=== PATIENT | female | born 1940 | race Caucasian/White ===

== ENCOUNTER 2017-11-06 12:35 | Emergency (ER) | payer OTHER ==
[~2017-11-06] VITALS: Ht 142.2 cm; Wt 99.8 kg
[~2017-11-06 12:35] MED LIST: ADULT LOW DOSE81 MG PO; ALTACE10 MG PO; ALTACE5 M1 PO; AMBIEN 5 MG TABL5 M1 PO; APAP650 PO; ASPIRIN81 M2 PO; BENTYL 20 MG TA20 M1 PO; CAPOTEN 50MG TA50 MG PO; COLACE 100 MG100 MG PO; CRANBERRY 12,61 EACH PO; DICYCLOMINE PO; DIPHENOXYLATE/A1 TA1 PO; FENOFIBRATE160 MG PO; FLONASE 0.05%50 MCG NASAL; GLUCOSAMINE &1 EAC1 PO; GLUCOSAMINE-CH1 EA37 PO; HYDROCODON-ACE1 EACH PO; IRON325 PO; LASIX 40 MG TAB40 M1 PO; LOPRESSOR100 MG PO; NEXIUM40 MG PO; PLAVIX 75 MG TA75 M1 PO; POTASSIUM CHLO20 ME1 PO; POTASSIUM GLUC500 MG PO; PROAIR HFA8.5 GM INH; PROTONIX40 M2 PO; TOPROL XL100 MG PO; TRAMADOL 50 MG50 MG PO; VITAMIN D-32000 UNIT PO; VYTORIN 10-201 EACH PO; ZETIA10 MG PO; ZOCOR40 MG PO
[2017-11-06] MEDS ORDERED: CALCIUM500 MG PO (12:54)
[2017-11-06] MEDS ORDERED: [UNRECOGNIZED DRUG - OTHER] PO (12:55)
[2017-11-06] MEDS ORDERED: IRON325 PO (12:59)
[2017-11-06] MEDS ORDERED: COLACE100 MG PO (13:00)
[2017-11-06 13:40] LABS: HEMATOCRIT 34.5 % (37.0-47.0); HEMOGLOBIN 10.7 gm/dL (12.0-15.0); MCH 22.9 pg (26.0-34.0); MCHC 30.9 g/dL (28.0-37.0); PLATELET COUNT 337 thou/uL (150-400); RBC 4.67 mil/uL (4.20-5.00); RDW 26.8 % (10.5-14.5); WBC 8.6 thou/uL (4.0-11.0)
[2017-11-06 13:42] LABS: MANUAL DIFF YES
[2017-11-06 13:43] LABS: CALCIUM 9.1 mg/dL (8.5-10.1); POTASSIUM 4.4 mmol/L (3.5-5.1)
[2017-11-06 13:55] LABS: ALBUMIN 3.6 g/dL (3.4-5.0); DIRECT BILIRUBIN 0.1 mg/dL (<0.1-0.3); TOTAL BILIRUBIN 0.3 mg/dL (<0.1-1.0); TOTAL PROTEIN 7.1 g/dL (6.4-8.2)
[2017-11-06 14:31] LABS: ABSOLUTE NEUTROPHILS 6.7 thou/uL (1.4-8.2); MICROCYTES 2+; PLATELET ESTIMATE NORMAL; TOTAL CELL COUNT 100
[2017-11-06 14:32] LABS: ANISOCYTOSIS 1+
== END 2017-11-06 15:30 | disposition home or self-care (01) ==
LOC: ER 12:35
PROVIDERS: Emergency Medicine
DX: K92.2 Gastrointestinal hemorrhage, unspecified (principal); Z88.2 Allergy status to sulfonamides; I25.10 Atherosclerotic heart disease of native coronary artery without angina pectoris; R60.9 Edema, unspecified; I10 Essential (primary) hypertension; E78.00 Pure hypercholesterolemia, unspecified

== ENCOUNTER → 2018-02-25 | Outpatient (CLI) | payer OTHER ==
[~2018-02-25] VITALS: Ht 142.2 cm; Wt 97.5 kg
[~2018-02-25] MED LIST changes: +CALCIUM500 MG PO; +COLACE100 MG PO; +VENTOLIN HFA 1818 GM INH; +[UNRECOGNIZED DRUG - OTHER] PO
--- NOTE | ~2018-02-25 | P ---
[facility] [place] [address] PROCEDURE REPORT Name: SAMANTHA MCKNIGHT Room #: REG [facility] Klever#: [id number] Admission: 02/25/18 Attend Phys: Omar Evangelista Discharge: Date of : 42 Report #: [id number] THIS REPORT FOR: //name// CC: YOLIE Mancia DATE OF SERVICE: 02/25/2018 PROCEDURE PERFORMED: Upper endoscopy with polypectomy and biopsies. HISTORY OF PRESENT ILLNESS: The patient is a 77-year-old female who was recently seen in the office with intermittent bright red blood per rectum. She has a previous history of colon AVMs which were cauterized by my partner several years ago. She also has a history of gastroesophageal reflux disease, takes Nexium on a daily basis. She denies any dysphagia or odynophagia. Plan is for EGD and colonoscopy. DESCRIPTION OF PROCEDURE: The risks and benefits of the procedure were explained to the patient, those risks including but not limited to bleeding, perforation, the risk of sedation. She understood these risks and gave informed consent. Sedation was given using propofol per anesthesia. Next, using a standard Odojoinon upper endoscope, the scope was placed in the patient's mouth and advanced under direct vision through the esophagus, stomach and into the second portion of the duodenum. The larynx was normal in appearance. The esophagus was normal throughout. In the stomach, there was a mild gastritis. Biopsies were obtained. There was a polyp that was somewhat atypical in appearance. It was approximately 5-6 mm in size. Because of this, I removed it by snare cautery. No evidence of bleeding after polypectomy. The pylorus was normal and patent. The duodenal bulb, first and second portion were all normal. The scope was then withdrawn and the procedure terminated. The patient tolerated the procedure well. IMPRESSION: 1. Gastric polyp. 2. Mild gastritis. 3. No evidence of bleeding throughout the exam. 4. Otherwise, normal upper endoscopy. RECOMMENDATIONS: 1. Await biopsy results. 2. We will proceed with colonoscopy next today. [facility] [address] [place] [address] PROCEDURE REPORT Name: SAMANTHA MCKNIGHT Room #: REG JENNY Ernst#: [id number] Admission: 02/25/18 Attend Phys: Omar Evangelista Discharge: Date of : 42 Report #: [id number] Thank you for allowing me to participate in her care. <ELECTRONICALLY SIGNED> By: Omar Landaverde MD 02/26/18 0809 0859 1215 Omar Landaverde MD /nt
--- NOTE | ~2018-02-25 | S ---
[facility] [place] [address] SURGICAL PATH RPT PROCEDURE Name: MARGUERITE BILLINGS Room #: REG JENNY Lizzette.#: [id number] Admission: 02/25/18 Date of : 42 Discharge: Report #: [id number] Path Case #: [id number] PATHOLOGY REPORT COLLECTION DATE: 02/25/2018 RECEIVED DATE: 02/25/2018 SUBMITTING PHYS: Dr. Omar Landaverde OTHER PHYS: Dr. Taylor Mancia ADDENDUM REPORT (Order Date: 02/27/2018 10:48) ADDENDUM COMMENT: Acid fast bacillus and PAS-D fungal special stains performed on block A1 are negative for mycobacterial as well as fungal elements, respectively. The originally rendered diagnoses remain unchanged. Professional services performed by [facility] at [facility] [address] [place] [address] Technical services performed by [facility] at [address] [place] [address], [address] [place] [address]. ELECTRONICALLY SIGNED BY: Orin Rutledge M.D. DATE/TIME:02/27/2018 16:20 SPECIMEN(S) RECEIVED: A.Gastric polyp B.Bx gastric C.Polyp at transverse colon D.Polyp at sigmoid colon * * * * * * * * * * * * FINAL DIAGNOSIS: A. 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 - Negative for dysplasia or malignancy. B. Gastric mucosa, gastritis, endoscopic biopsy: - Mild reactive gastropathy. - Negative for intestinal metaplasia or atrophy. - Negative for Helicobacter pylori. C. Polyp, at transverse colon, endoscopic biopsy: - Tubular adenoma. - Negative for high-grade dysplasia. D. Polyp, at sigmoid colon, endoscopic biopsy: - Tubular adenoma. - Negative for high grade dysplasia. [facility] [address] [place] [address] SURGICAL PATH RPT PROCEDURE Name: MARGUERITE BILLINGS Room #: REG CLJud Ernst#: [id number] Admission: 02/25/18 Date of : 42 Discharge: Report #: [id number] Path Case #: [id number] COMMENT: Part A: AFB and PAS-D fungal special stains are ordered on block A1. The results of these will be reported in an addendum to follow. Well controlled Helicobacter pylori immunohistochemical stain performed on block B1-negative. (IUV:pit; 02/26/2018) PATHOLOGIST: Orin Rutledge M.D. REPORT ELECTRONICALLY SIGNED BY: Orin Rutledge M.D. DATE/TIME: 02/26/2018 15:44 * * * * * * * * * * * * GROSS PATHOLOGY: A. The specimen is received in formalin, labeled "Marguerite Billings and gastric polyp", are two garland soft tissues 0.2 cm and is 0.4 x 0.3 cm, entirely submitted in A1. B. The specimen is received in formalin, labeled "Marguerite Billings and biopsy gastritis", are several garland soft tissues the aggregate measure 0.6 x 0.4 x 0.1 cm, entirely submitted in B1. C. The specimen is received in formalin, labeled " Marguerite Billings and polyp at transverse colon", is a garland soft tissue measuring 0.2 cm in greatest dimension, entirely submitted in C1. D. The specimen is received in formalin, labeled " Billings, Marguerite and polyp at sigmoid colon", is a garland soft tissue measuring 0.3 cm in greatest dimension, entirely submitted in D1. (SWS; 02/25/2018) CLINICAL HISTORY: Anemia, gastric polyp, colon polyps, gastritis INITIAL CPT CODE(S): A; 69294, 94112, 62379 B; 92492, 56770 C; 39633 D; 09111 Professional services performed by [facility] at [address], [place] [address] Technical services performed by [facility] at [address] [place] [address], [place] [address]. [facility] [address] [address] SURGICAL PATH RPT PROCEDURE Name: MARGUERITE BILLINGS Room #: REG JENNY Ernst#: [id number] Admission: 02/25/18 Date of : 42 Discharge: Report #: [id number] Path Case #: [id number] [address] PHONE: [phone] DIRECTOR: Jarred W. April, M.D. * * * END OF REPORT * * *
--- NOTE | ~2018-02-25 | P ---
[facility] [place] [address] PROCEDURE REPORT Name: SAMANTHA MCKNIGHT Room #: REG JENNY Ernst#: [id number] Admission: 02/25/18 Attend Phys: Omar Evangelista Discharge: Date of : 42 Report #: [id number] THIS REPORT FOR: //name// CC: Omar Mancia MD DATE OF SERVICE: 02/25/2018 PROCEDURE PERFORMED: Colonoscopy with biopsies. HISTORY OF PRESENT ILLNESS: The patient is a 77-year-old female who was seen by myself in the office on 12/04/2017 with intermittent bright red blood per rectum and a history of anemia. She had a previous history of colonoscopy with nonbleeding AVMs that were cauterized at that time in 2013. Upper endoscopy was just performed, which was essentially negative. DESCRIPTION OF PROCEDURE: The risks and benefits of the procedure were explained to the patient, those risks including but not limited to bleeding, perforation and the risk of sedation. She understood these risks and gave informed consent. Sedation was given using propofol per anesthesia. Next, a digital rectal exam showed external hemorrhoids, nonbleeding, otherwise normal. Next, using a standard Fujinon colonoscope, the scope was placed in the patient's anus and advanced under direct vision to the cecum. The overall prep was excellent. Cecum and ileocecal valve were normal in appearance. The ascending colon was normal. In the transverse colon, a 3 mm sessile polyp was noted. This was removed by cold forceps, otherwise normal. Descending colon was normal. A few scattered diverticula were noted in the sigmoid colon. Also, noted was a 3 mm sessile polyp, removed by cold forceps. No evidence of bleeding throughout the exam today. The rectal mucosa was normal. On retroflexion, small nonbleeding internal hemorrhoids were noted. The scope was then withdrawn and the procedure terminated. The patient tolerated the procedure well. IMPRESSION: 1. Mild sigmoid diverticulosis. 2. Two small colon polyps. 3. Small internal hemorrhoids, medium size external hemorrhoids, likely source of recent bright red blood per rectum. No evidence of bleeding at this time. RECOMMENDATIONS: 1. Await biopsy results. 2. If polyps are adenomatous polyps, repeat colonoscopy in 5 years. 3. We would recommend high fiber diet and Analpram on a p.r.n. basis. [address] [address] PROCEDURE REPORT Name: SAMANTHA MCKNIGHT Room #: REG JENNY Ernst#: [id number] Admission: 02/25/18 Attend Phys: Omar Evangelista Discharge: Date of : 42 Report #: [id number] Thank you for allowing me to participate in her care. <ELECTRONICALLY SIGNED> By: Omar Landaverde MD 02/26/18 0809 0930 1211 mOar Landaverde MD /jordan
== END | disposition home or self-care (01) ==
LOC: GI 02-04 11:13
DX: D12.3 Benign neoplasm of transverse colon (principal); D12.5 Benign neoplasm of sigmoid colon; K29.60 Other gastritis without bleeding; K31.7 Polyp of stomach and duodenum; D64.9 Anemia, unspecified; K64.4 Residual hemorrhoidal skin tags; K57.30 Diverticulosis of large intestine without perforation or abscess without bleeding; K64.8 Other hemorrhoids; K21.9 Gastro-esophageal reflux disease without esophagitis; Z79.899 Other long term (current) drug therapy
CPT/HCPCS: 62110; 62900

== ENCOUNTER → 2019-05-20 | Outpatient (CLI) | payer OTHER ==
--- NOTE | 2019-05-21 20:06 | SLE ---
[facility] [place] [address] POLYSOMNOGRAPHY STUDY Name: SAMANTHA MCKNIGHT Room #: REG [facility]#: [id number] Admission: 05/20/19 ������������������ Attend Phys: Ivan Burrell MD Discharge: ������������������ Date of : 42 Report #: [id number] THIS REPORT FOR: //name// CC: Ivan Ambriz MD DATE OF SERVICE: 05/20/2019 ATTENDING PHYSICIAN: Keyon Ambriz MD. The patient is a 79-year-old who weighs 226 pounds with a BMI of 44.1. The patient's Linkwood score was 3. The patient underwent a diagnostic sleep study performed at [facility]. During the night study, the patient spent 482 minutes in bed and slept for 253 minutes with a low sleep efficiency of 52.5%. Sleep latency was prolonged at 195 minutes with an absent REM latency. Sleep architecture showed increased stage 1 and stage 2 sleep with absent N3 sleep and absent REM sleep. During the night study, the patient had 2 obstructive apneas, no mixed or central apneas. There were 30 hypopneas. The patient's apnea hypopnea index was 7.1 per hour. REM sleep was not seen. The patient's supine index was 17 per hour. EKG monitoring revealed an average heart rate of 86 beats per minute. Frequent PVCs were observed, but no sustained arrhythmias seen. Maximum heart rate was 96 beats per minute during sleep. PLMs were seen as an index of 223 per hour and 21 per hour caused EEG arousals. Nocturnal oximetry study revealed an average oxygen saturation of 93% with a lowest of 86%. 0.9 minutes were spent at an oxygen saturation of less than 89%. Due to low AHI, the patient did not meet the split night criteria for CPAP initiation. IMPRESSION: 1. Mild sleep apnea-hypopnea syndrome with moderate increase during supine sleep. Total apnea hypopnea index of 7.6 per hour with a supine apnea hypopnea index of 17 per hour. Absence of rapid eye movement sleep can underestimate the severity of sleep apnea. 2. Reduced sleep efficiency resulting from sleep onset insomnia. 3. Severe periodic limb movements resulting in significant EEG arousals. The patient's total periodic limb movement index was 223 per hour with an arousal [facility] [address] [place] [address] POLYSOMNOGRAPHY STUDY Name: SAMANTHA MCKNIGHT Room #: REG [facility].#: [id number] Admission: 05/20/19 ������������������ Attend Phys: Ivan Burrell MD Discharge: ������������������ Date of : 42 Report #: [id number] index of 21 per hour. 4. No clinically significant nocturnal hypoxia. RECOMMENDATIONS: 1. The patient has mild sleep apnea. If the patient is clinically symptomatic or has comorbid conditions, then it can be treated with either oral appliance or a trial of CPAP titration. 2. Weight loss is strongly advised. 3. Avoid supine sleep. 4. Cautioned regarding driving until symptoms of sleep apnea resolve with the above recommendation. 5. The patient was noted to have sleep onset insomnia. If this is a chronic condition, then it should be treated according to the etiology. 6. The patient has severe PLMs with significant EEG arousals. It be treated with dopaminergic agonist agents. The patient should also be further evaluated for symptoms of restless legs during the day. ��������������������������������������������� <ELECTRONICALLY SIGNED> ���������������������������������������� By: Ivan Burrell MD ��������������������������������������������� 05/21/192005 1645 1730 Ivan Burrell MD /nt
== END ==
LOC: SLEEPLAB 13:57
DX: G47.33 Obstructive sleep apnea (adult) (pediatric) (principal)

== ENCOUNTER 2019-06-16 16:44 | Emergency (ER) | payer OTHER ==
[~2019-06-16] VITALS: Ht 149.9 cm; Wt 102.1 kg
[2019-06-16 16:45] VITALS: BP 130/48
[2019-06-16 17:37] LABS: HEMATOCRIT 25.9 % (37.0-47.0); HEMOGLOBIN 7.4 gm/dL (12.0-15.0); MCH 17.4 pg (26.0-34.0); MCHC 28.6 g/dL (28.0-37.0); PLATELET COUNT 426 thou/uL (150-400); RBC 4.25 mil/uL (4.20-5.00); RDW 19.6 % (10.5-14.5)
[2019-06-16] MEDS ORDERED: TYLENOL ARTHRI650 MG PO (17:38)
[2019-06-16] MEDS ORDERED: TESSALON PERLE100 MG PO (17:38)
[2019-06-16] MEDS ORDERED: CYMBALTA30 MG PO (17:39)
[2019-06-16] MEDS ORDERED: CRANBERRY200 MG PO (17:39)
[2019-06-16] MEDS ORDERED: OXYBUTYNIN 5 MG5 M2 PO (17:40)
[2019-06-16] MEDS ORDERED: MAXZIDE-25 MG1 EACH PO (17:40)
[2019-06-16] MEDS ORDERED: XANAX 0.5 MG0.5 MG PO (17:41)
[2019-06-16 17:46] LABS: CALCIUM 9.4 mg/dL (8.5-10.1); CREATININE 1.2 mg/dL (0.6-1.0); POTASSIUM 4.8 mmol/L (3.5-5.1)
[2019-06-16 17:51] LABS: APTT 24.7 Seconds (24.5-32.8); PROTIME 9.9 Seconds (9.3-11.4)
[2019-06-16 17:52] LABS: ALBUMIN 3.5 g/dL (3.4-5.0); TOTAL BILIRUBIN 0.3 mg/dL (<0.1-1.0); TOTAL PROTEIN 7.3 g/dL (6.4-8.2)
[2019-06-16 18:04] LABS: ABSOLUTE NEUTROPHILS 6.9 thou/uL (1.4-8.2)
[2019-06-16 18:05] LABS: ANISOCYTOSIS 2+; HYPOCHROMASIA 3+; MICROCYTES 2+
--- NOTE | 2019-06-16 18:54 | NUR ---
TRANSFUSION CONSENT IN CHART
[2019-06-17 01:44] LABS: % SATURATION 3 % (20-39); IRON 16 ug/dL (50-170); TIBC 609 ug/dL (250-450)
[2019-06-17 01:48] LABS: ABSOLUTE RETIC COUNT 0.1025 10^6/uL; OBSERVED RETIC COUNT 2.42 % (0.6-2.6)
[2019-06-17 01:57] VITALS: BP 147/52; BP 149/71; BP 154/55; BP 158/63; BP 162/59
[2019-06-17 02:12] LABS: FOLIC ACID 17.1 ng/mL (8.6-58.9)
[2019-06-17 05:19] LABS: HEMATOCRIT 32.3 % (37.0-47.0); MCH 18.8 pg (26.0-34.0); MCHC 29.4 g/dL (28.0-37.0); RBC 5.04 mil/uL (4.20-5.00); RDW 23.1 % (10.5-14.5); WBC 11.8 thou/uL (4.0-11.0)
[2019-06-17 05:21] LABS: HEMOGLOBIN 9.5 gm/dL (12.0-15.0)
[2019-06-17 05:33] LABS: CALCIUM 9.3 mg/dL (8.5-10.1); POTASSIUM 4.4 mmol/L (3.5-5.1)
[2019-06-17 10:48] VITALS: BP 155/62
[2019-06-17 11:07] VITALS: BP 163/70
== END 2019-06-17 11:39 | disposition home or self-care (01) ==
LOC: ER 16:44 → EROBS 18:30 → ER 06-17 11:39
PROVIDERS: Nurse Practitioner Family; Physician Assistant
DX: D64.9 Anemia, unspecified (principal); R53.1 Weakness; I10 Essential (primary) hypertension; I25.2 Old myocardial infarction; I25.10 Atherosclerotic heart disease of native coronary artery without angina pectoris; E78.5 Hyperlipidemia, unspecified; K58.9 Irritable bowel syndrome, unspecified; J45.909 Unspecified asthma, uncomplicated; K21.9 Gastro-esophageal reflux disease without esophagitis; Z98.890 Other specified postprocedural states; Z95.2 Presence of prosthetic heart valve; Z98.41 Cataract extraction status, right eye; Z98.42 Cataract extraction status, left eye; Z90.89 Acquired absence of other organs; Z90.710 Acquired absence of both cervix and uterus; Z88.2 Allergy status to sulfonamides; Z88.3 Allergy status to other anti-infective agents; Z91.048 Other nonmedicinal substance allergy status

== ENCOUNTER → 2019-07-18 | Outpatient (CLI) | payer OTHER ==
[~2019-07-18] MED LIST changes: +CRANBERRY200 MG PO; +CYMBALTA30 MG PO; +MAXZIDE-25 MG1 EACH PO; +OXYBUTYNIN 5 MG5 M2 PO; +TESSALON PERLE100 MG PO; +TYLENOL ARTHRI650 MG PO; +XANAX 0.5 MG0.5 MG PO
== END | disposition home or self-care (01) ==
LOC: GI 06:16
DX: D64.9 Anemia, unspecified (principal); Z79.899 Other long term (current) drug therapy; Z88.2 Allergy status to sulfonamides; Z88.8 Allergy status to other drugs, medicaments and biological substances

== ENCOUNTER → 2020-11-05 | Outpatient (CLI) | payer OTHER | LOC: LAB 14:06 | PROVIDERS: ATTEND Specialist | DX: Z01.812 Encounter for preprocedural laboratory examination (principal); Z20.828 Contact with and (suspected) exposure to other viral communicable diseases ==

== ENCOUNTER → 2020-11-10 | Outpatient (CLI) | payer OTHER ==
[~2020-11-10] VITALS: Ht 149.9 cm; Wt 99.8 kg
[~2020-11-10] MED LIST changes: +ASA81BEC PO; +COMBIVENT RESPIM4 GM INH; +CRESTOR5 MG PO; +DULOXETINE HCL60 MG PO; +LORATIDINE 10 M10 M1 PO; +MAGNESIUM400 MG PO; +MECLIZINE HCL25 M1 PO; +METOPROLOL SUCC50 MG PO; +NEXIUM20 MG PO; +NITROSTAT0.4 M1 SUBLING; +ORPHENADRINE C100 M2 PO; +RAMIPRIL10 MG PO
[2020-11-10 08:27] LABS: HEMATOCRIT 27.7 % (37.0-47.0); HEMOGLOBIN 8.8 gm/dL (12.0-15.0); MCH 28.5 pg (26.0-34.0); MCHC 31.8 g/dL (28.0-37.0); MCV 89.8 fL (80.0-100.0); RBC 3.08 mil/uL (4.20-5.00); RDW 22.3 % (10.5-14.5); WBC 11.2 thou/uL (4.0-11.0)
--- NOTE | 2020-11-10 15:28 | P ---
[facility] [place] [address] PROCEDURE REPORT Name: SAMANTHA MCKNIGHT Room #: REG AMADORJud Ernst#: [id number] Admission: 11/10/20 Attend Phys: Omar Evangelista Discharge: Date of : 42 Report #: [id number] THIS REPORT FOR: cc: Taylor Mancia MD, Cora A. MD McElhinney, Christian C. MD ~ DATE OF SERVICE: 11/10/2020 PROCEDURE PERFORMED: Upper endoscopy with small bowel enteroscopy and cauterization as well as esophageal dilation. HISTORY OF PRESENT ILLNESS: The patient is a 80-year-old female with a history of anemia and GI bleed. She reports recently noticing maroon-colored stools. She had undergone an EGD and a colonoscopy by myself on 02/25/2018 for intermittent bright red blood per rectum at that time and anemia. Previous colonoscopy with history of AVMs in 2013. Colonoscopy at that time showed mild sigmoid diverticulosis. Two small polyps were removed. Internal hemorrhoids were seen. EGD: Small gastric polyp, mild gastritis, otherwise negative. Biopsies were negative for H. pylori, colon polyps or tubular adenomas. She then underwent a M2 capsule endoscopy on 07/18/2019, which showed possible small nonbleeding AVM in the jejunum. The patient states she has had hemoglobin recently of 7.1, requiring a blood transfusion. She has also had IV iron infusion. She does take aspirin and Plavix on a regular basis for history of coronary artery disease and previous stents. She does report some mild nausea at times. She takes Nexium b.i.d. She also complains of dysphagia intermittently. DESCRIPTION OF PROCEDURE: The risks and benefits of the procedure were explained to the patient, those risks including but not limited to bleeding, perforation and the risk of sedation. She understood these risks and gave informed consent. Sedation was given using propofol per anesthesia. Next, using a pediatric Olympus colonoscope, the scope was placed in the patient's mouth and advanced under direct vision through the esophagus, stomach, into the duodenum and well into the jejunum up to 130 cm. Three nonbleeding small AVMs were noted in the jejunum. All were cauterized with a 7-Armenian bipolar cautery. No other abnormalities were noted. The duodenal bulb was normal. Overall, the gastric mucosa was normal. The esophagus was normal. The GE junction was also normal. No evidence of stricture or esophagitis. The scope was then advanced into the stomach. A Savary guidewire was advanced through the scope leaving the guidewire in place as the scope was then withdrawn. Next, a 48-Armenian Savary dilation of the esophagus was then performed without difficulty. The wire and dilator removed. The scope was reintroduced into the patient's stomach. There was no evidence of mucosal tear after dilation. The scope was then withdrawn and the procedure terminated. The patient tolerated the procedure well. [address] [address] PROCEDURE REPORT Name: MCKNIGHTSAMANTHA ERNESTINE Room #: REG JENNY Ernst#: [id number] Admission: 11/10/20 Attend Phys: Omar Evangelista Discharge: Date of : 42 Report #: [id number] IMPRESSION: 1. Three small bowel, nonbleeding AVMs in the jejunum, all of which were cauterized today as described above. 2. Otherwise, normal upper endoscopy. RECOMMENDATIONS: 1. Observe the patient post-procedure and dilation. 2. Continue b.i.d. PPI therapy. 3. If the patient has continued bleeding and/or anemia, would recommend repeat colonoscopy in the near future. Thank you for allowing me to participate in her care. <ELECTRONICALLY SIGNED> By: Omar Landaverde MD 11/10/20 1528 0944 1056 Omar Landaverde MD /nt
== END | disposition home or self-care (01) ==
LOC: GI 07:38
PROVIDERS: Student in an Organized Health Care Education/Training Program; ATTEND Specialist
DX: K55.20 Angiodysplasia of colon without hemorrhage (principal); R13.10 Dysphagia, unspecified; R11.0 Nausea; I10 Essential (primary) hypertension; I25.10 Atherosclerotic heart disease of native coronary artery without angina pectoris; I25.2 Old myocardial infarction; E78.5 Hyperlipidemia, unspecified; D64.9 Anemia, unspecified; G47.30 Sleep apnea, unspecified; F41.9 Anxiety disorder, unspecified; Z98.890 Other specified postprocedural states; Z79.899 Other long term (current) drug therapy; Z87.891 Personal history of nicotine dependence; Z90.710 Acquired absence of both cervix and uterus; Z98.41 Cataract extraction status, right eye; Z98.42 Cataract extraction status, left eye; Z88.2 Allergy status to sulfonamides; Z88.8 Allergy status to other drugs, medicaments and biological substances
CPT/HCPCS: 62110; 62900